=== PATIENT | female | born 1975 | race Caucasian/White ===

== ENCOUNTER 2022-07-17 14:25 | Emergency (ER) | payer OTHER, SELFPAY ==
[2022-07-17 14:25] VITALS: BP 149/108; PULSE 98; RESP 18; TEMP 36.4; O2SAT 18
--- NOTE | 2022-07-17 14:41 | ED.GENADULT ---
HPI - General Adult General Chief complaint: Dental/Oral Stated complaint: dental infection Time Seen by Provider: 07/17/22 14:39 History of Present Illness HPI narrative: The patient is a 46-year-old woman with history of hypertension, diabetes, morbid obesity 169 kg, on meloxicam for chronic musculoskeletal pains. The patient has had pain in the left lower posterior molar for 3 days, since 07/15/2022. Yesterday, she contacted her dentist, who called in a prescription for amoxicillin 500 mg p.o. t.i.d. for 10 days. She has taken approximately 5 tablets worth. She is on meloxicam at home and is alternating with ibuprofen 800 mg at a time with no relief of the pain. She reports today swelling in the left aspect of her face that is mild. She is able to swallow but it causes her pain due to the tooth pain. No pain in the right ear but has pain in the left ear region. No vomiting. No abdominal pain. No chest pain. No other complaints. No fevers. Related Data Home Medications Medication Instructions Recorded Confirmed lisinopril 5 mg tablet 5 mg DAILY 03/01/19 07/17/22 pantoprazole 40 mg tablet,delayed 40 mg PO QAM 03/01/19 07/17/22 release amoxicillin 500 mg capsule 500 mg PO TID 07/17/22 07/17/22 aripiprazole 5 mg tablet 5 mg PO DAILY 07/17/22 07/17/22 bupropion HCl 150 mg 24 hr tablet, 150 mg PO DAILY 07/17/22 07/17/22 extended release buspirone 15 mg tablet 15 mg PO DAILY 07/17/22 07/17/22 glyburide 2.5 mg tablet 2.5 mg PO DAILY 07/17/22 07/17/22 hydroxyzine HCl 25 mg tablet 25 mg PO DAILY 07/17/22 07/17/22 valacyclovir 500 mg tablet 500 mg PO DAILY 07/17/22 07/17/22 Allergies Allergy/AdvReac Type Severity Reaction Status Date / Time CHERRIES AdvReac Mild Flushing Uncoded 07/17/22 14:33 Review of Systems Review of Systems: All systems reviewed & are unremarkable except as noted in HPI and below Constitutional: Constitutional: Reports as per HPI, Reports no additional constitutional complaints, Denies chills, Denies excessive sweating, Denies fatigue, Denies fever(s), Denies headache(s) and Denies weakness Eyes: Eyes: Reports as per HPI, Reports no additional eye complaints, Denies change in vision and Denies photophobia ENT: Reports system reviewed and no additional complaints, except as documented, Reports as per HPI, Denies dysphagia, Denies vertigo, Denies dizziness, Denies headache(s), Denies lip swelling, Denies nasal congestion, Denies sore throat, Denies throat swelling and Denies tongue swelling Comments: Left earache. Left posterior molar tooth pain, with concomitant swelling of the left aspect of her face Cardiovascular: Cardiovascular: Reports as per HPI, Reports no additional cardiovascular complaints, Denies chest pain, Denies syncope, Denies rapid heart rate and Denies dyspnea Respiratory: Respiratory: Reports as per HPI, Reports no additional respiratory complaints, Denies chest congestion, Denies cough, Denies dyspnea and Denies wheezing Gastrointestinal: Gastrointestinal: Reports as per HPI, Reports no additional gastrointestinal complaints, Denies abdominal pain, Denies constipation, Denies dysphagia, Denies diarrhea, Denies nausea and Denies vomiting Genitourinary: Genitourinary: Reports as per HPI, Denies hematuria, Denies urinary frequency, Denies dysuria, Denies urinary incontinence and Denies urinary urgency Musculoskeletal: Musculoskeletal: Reports no additional musculoskeletal complaints, Reports back pain ( chronic on meloxicam), Denies myalgias, Denies arthralgias, Denies joint swelling and Denies numbness Integumentary/Breasts: Skin/Breast: Reports system reviewed and no additional complaints, except as docu, Denies pruritus, Denies erythema, Denies rash and Denies skin ulcer Neurologic: Reports system reviewed and no additional complaints, except as documented, Reports as per HPI, Denies confusion, Denies vertigo, Denies dizziness, Denies syncope, Denies headache(s), Denies focal weakness,
[2022-07-17] MEDS: HYDROmorphone HCL INJ (*CRX) 2 MG/ML VIAL IM (15:03)
--- NOTE | 2022-07-17 16:08 | PC.NURSE ---
PT REPORTS PAIN IS GREATLY IMPROVED. TO TRANSPORT. DENTAL LIST PROVIDED.
[2022-07-17 16:09] VITALS: BP 92/60; PULSE 79; RESP 18; O2SAT 96
== END 2022-07-17 16:00 | disposition home or self-care (01) ==
PROVIDERS: Emergency Provider Emergency Medicine; PCP Family Medicine
DX: K02.9 Dental caries, unspecified (principal); S02.5XXA Fracture of tooth (traumatic), initial encounter for closed fracture; K05.10 Chronic gingivitis, plaque induced; I10 Essential (primary) hypertension; E11.9 Type 2 diabetes mellitus without complications; Z79.1 Long term (current) use of non-steroidal anti-inflammatories (NSAID); X58.XXXA Exposure to other specified factors, initial encounter
CPT/HCPCS: 96372; 99283; J1170